=== PATIENT | male | born 1970 | race Caucasian/White ===

== ENCOUNTER 2016-08-09 20:24 | Emergency (ER) | payer SELFPAY ==
--- NOTE | 2016-08-09 21:05 | ED CLINICAL REPORT ---
Clinical Report - Physicians/Mid Levels [facility] [address] [place] [address] 08/09/2016 20:26 [id number] Time Seen: 20:55 Aug 09 2016. Arrived- By private vehicle. Historian- patient. HISTORY OF PRESENT ILLNESS Chief Complaint: Injury to the right wrist. The injury happened just prior to arrival. The patient sustained a direct blow. Occurred at home. Patient is experiencing moderate pain. Patient denies injury to the head. ( prior to arrival, patient tripped over a rug at home that was folded, and fell onto an outstretched right wrist. Incident occurred 45 minutes prior to arrival, with immediate swelling, pain to the right side. Denies any paresthesias. Previous injury, fracture of the wrist as a child.). REVIEW OF SYSTEMS No tingling, numbness or skin laceration. All systems otherwise negative, except as recorded above. PAST HISTORY The patient has had a prior injury to the same area. SOCIAL HISTORY Alcohol use. History of drug use: marijuana. PHYSICAL EXAM Vital Signs: 08/09/2016 20:45 BP: 126/72. HR: 83. RR: 18. O2 saturation: 98%. Temp: 97.8 F. Head: Head atraumatic. Neck: Normal inspection. Neck supple. CVS: Normal heart rate and rhythm. Heart sounds normal. Respiratory: No respiratory distress. Breath sounds normal. Back: No tenderness. Normal inspection. Skin: Skin warm. Skin intact. Extremities: Right distal radius: moderate tenderness and swelling. Limited thumb movement (diminished flexion and extension). Limited ROM at the wrist secondary to pain (diminished flexion and radial deviation). Neurovascular intact distally. No ecchymosis, foreign body or deformity. No signs of infection present. No hand injury. Neuro, Vascular and Tendons: Vascular status intact. No pulse deficit present. Motor intact. Tendon function intact. No sensory deficit or weakness. Neuro: Oriented X 3. LABS, X-RAYS, AND EKG Rt Wrist X-ray: (IMPRESSION: 1. Mildly impacted intra-articular fracture the right distal radius. Electronically Final signed by:Reece Koehler MD 08/09/2016 9:14:10 PM). PROGRESS AND PROCEDURES Splint Application: Time: 21:41 Aug 09 2016. Fiberglass sugar tong splint applied to right hand and wrist. Splint applied with direct supervision by me. Reassessed extremity following splint application. Neurovascular intact. Course of Care: patient with distal radius fracture, with no neurovascular complications or secondary signs of infection. Patient splinted. Follow-up with orthopedics. Stable otherwise. No other injuries. Mechanical trip and fall. No injuries to the head or neck. Patient is stable. Symptoms better. Patient/family counseled. Disposition: Discharged. Condition: good. CLINICAL IMPRESSION Comminuted and intraarticular fracture of the distal right radius Fall on same level by tripping. INSTRUCTIONS Apply ice. Elevate affected areas above chest level. Wear sling and splint. Limit use of your hand. ([facility]: [phone]). Prescription Medications: Hydrocodone/APAP 7.5mg / 325mg: take 1 orally every 6 hours as needed for pain. Dispense twenty-five (25). No refill. Ibuprofen 800 mg tablets: take 1 tablet orally every 8 hours for 3 days, as needed for pain. Dispense ten (10). No refill. (Electronically signed by Ce Cantu P.A.-C 08/09/2016 21:41)
--- NOTE | 2016-08-09 21:05 | ED NURSING NOTES ---
Clinical Report - Nurses [facility] [address] [place] [address] 08/09/2016 20:26 [id number] TRI[facility] Triage time 20:45. Acuity: LEVEL 4. Chief Complaint: INJURY TO RIGHT WRIST. --20:48 TonyaB, R.N. 20:45 08/09/16. BP: 126/72. HR: 83. RR: 18. O2 saturation: 98%. Temp: 97.8 F. Pain level now 11/28. --20:48 TonyaB, R.N. Weight: 108.8 kg. Height/Length: 69 inches. BMI: 35.4. --20:46 TonyaB, R.N. Medications None. --20:45 TonyaB, R.N. Allergies Iodine. --20:45 TonyaB, R.N. History Arrived by private vehicle. Historian: patient. Accompanied by family. This occurred just prior to arrival. Mechanism of injury: fell. ( pt slipped on area rug). 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 PAST MEDICAL HX: Tetanus status: up-to-date. Immunizations: up-to-date. SOCIAL HX: Smoker- current status unknown. Alcohol use. History of drug use: marijuana. No infectious disease exposure. FALL RISK ASSESSMENT: Fall risk assessment completed. No fall risk identified. NUTRITIONAL RISK ASSESSMENT: The nutritional risk assessment revealed no deficiencies. FUNCTIONAL ASSESSMENT: Functional assessment: no impairments noted. LEARNING NEEDS ASSESSMENT: The learning needs assessment revealed no barriers. SKIN INTEGRITY ASSESSMENT: Skin integrity risk assessment completed. No skin integrity risk identified. --20:48 TonyaB, R.N. PROBLEMS: no known problems. ADDITIONAL SURGERIES: no known surgeries. Interventions ID band on patient. To treatment room. --20:48 TonyaB, R.N. PHYSICAL ASSESSMENT Ambulatory to room. GENERAL / NEURO / PSYCH: Oriented X 4. Alert. EXTREMITIES: Capillary refill is less than 2 seconds in the extremities. Extremity pulses are within normal limits. Neuro-vascular status intact to the extremity. Right wrist: tenderness and swelling. SKIN: Skin intact. Skin is warm and dry. --20:48 Deana Genao NURSING PROGRESS NOTES 21:12 08/09/2016 Percocet (Oxycodone-Acetaminophen) PO 5/325 mg Tablets 1 tab given. Allergies verified, confirmed 5 rights and sedative warning given to the patient. --21:13 Tania Johnson R.N. 21:13 08/09/2016 Motrin PO Tablets 800 mg given. Allergies verified and confirmed 5 rights. --21:14 Tania Johnson R.N. DISPOSITION / DISCHARGE Departure time: 21:42. Condition at departure: improved. No learning barriers present. Discharge instructions provided and reviewed with the patient. Reviewed warnings. Reviewed medication(s) side effects, precautions, dosing and course information. Prescription(s) given to the patient. Treatments reviewed. Reviewed referrals. Activity restrictions reviewed. Work note given. Follow up contact number. Patient verbalized understanding. Written instructions provided in Serbian. No diet instructions or stop smoking instructions. The patient was discharged by the physician talent assistant. He was discharged home and accompanied by dental cream maker. He left the Emergency Department ambulatory and via private vehicle. Spectrograph Operator driving. FALL RISK ASSESSMENT: Fall risk assessment completed. No fall risk identified. --21:42 Deana Genao 21:41 08/09/16. BP: 128/70. HR: 74. RR: 18. O2 saturation: 99%. Temp: deferred. Pain level now: 08/29. --21:42 Deana Genao Locked/Released at 08/09/2016 21:42 by Deana Genao
--- NOTE | 2016-08-09 21:05 | ED NURSING NOTES ---
Clinical Report - Nurses [facility] [address] [place] [address] 08/09/2016 20:26 [id number] TRI[facility] Triage time 20:45. Acuity: LEVEL 4. Chief Complaint: INJURY TO RIGHT WRIST. --20:48 TonyaB, R.N. 20:45 08/09/16. BP: 126/72. HR: 83. RR: 18. O2 saturation: 98%. Temp: 97.8 F. Pain level now 11/28. --20:48 TonyaB, R.N. Weight: 108.8 kg. Height/Length: 69 inches. BMI: 35.4. --20:46 TonyaB, R.N. Medications None. --20:45 TonyaB, R.N. Allergies Iodine. --20:45 TonyaB, R.N. History Arrived by private vehicle. Historian: patient. Accompanied by family. This occurred just prior to arrival. Mechanism of injury: fell. ( pt slipped on area rug). 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 PAST MEDICAL HX: Tetanus status: up-to-date. Immunizations: up-to-date. SOCIAL HX: Smoker- current status unknown. Alcohol use. History of drug use: marijuana. No infectious disease exposure. FALL RISK ASSESSMENT: Fall risk assessment completed. No fall risk identified. NUTRITIONAL RISK ASSESSMENT: The nutritional risk assessment revealed no deficiencies. FUNCTIONAL ASSESSMENT: Functional assessment: no impairments noted. LEARNING NEEDS ASSESSMENT: The learning needs assessment revealed no barriers. SKIN INTEGRITY ASSESSMENT: Skin integrity risk assessment completed. No skin integrity risk identified. --20:48 TonyaB, R.N. PROBLEMS: no known problems. ADDITIONAL SURGERIES: no known surgeries. Interventions ID band on patient. To treatment room. --20:48 TonyaB, R.N. PHYSICAL ASSESSMENT Ambulatory to room. GENERAL / NEURO / PSYCH: Oriented X 4. Alert. EXTREMITIES: Capillary refill is less than 2 seconds in the extremities. Extremity pulses are within normal limits. Neuro-vascular status intact to the extremity. Right wrist: tenderness and swelling. SKIN: Skin intact. Skin is warm and dry. --20:48 Deana Genao NURSING PROGRESS NOTES 21:12 08/09/2016 Percocet (Oxycodone-Acetaminophen) PO 5/325 mg Tablets 1 tab given. Allergies verified, confirmed 5 rights and sedative warning given to the patient. --21:13 Tania Johnson R.N. 21:13 08/09/2016 Motrin PO Tablets 800 mg given. Allergies verified and confirmed 5 rights. --21:14 Tania Johnson R.N. DISPOSITION / DISCHARGE Departure time: 21:42. Condition at departure: improved. No learning barriers present. Discharge instructions provided and reviewed with the patient. Reviewed warnings. Reviewed medication(s) side effects, precautions, dosing and course information. Prescription(s) given to the patient. Treatments reviewed. Reviewed referrals. Activity restrictions reviewed. Work note given. Follow up contact number. Patient verbalized understanding. Written instructions provided in [place]. No diet instructions or stop smoking instructions. The patient was discharged by the physician delivery assistant. He was discharged home and accompanied by coining press operator. He left the Emergency Department ambulatory and via private vehicle. Physical Medicine Physician driving. FALL RISK ASSESSMENT: Fall risk assessment completed. No fall risk identified. --21:42 Deana Genao 21:41 08/09/16. BP: 128/70. HR: 74. RR: 18. O2 saturation: 99%. Temp: deferred. Pain level now: 08/29. --21:42 Deana Genao Locked/Released at 08/09/2016 21:42 by Deana Genao
--- NOTE | 2016-08-09 21:05 | ED ORDER SUMMARY ---
..... Patient: ABENA GARCIA OrderSheet [facility] VisitID: [id number] [place] [address] 46y, M Registration Date/Time: 08/09/2016 ORDER SHEET Weight: 108.8 kg Allergies: Iodine GENERAL ORDERS: Wrist 3 or 4V Right Urgent (20:53 08/09/2016 EKoroleva P.A.-C) (Ack 20:54 Lo ER Door Manager) (21:37 TBowen R.N.) Splint (UE) (Right) (Sugar Tong) (21:01 08/09/2016 EKoroleva P.A.-C) (Ack 21:16 RCollier R.N.) (21:37 TBowen R.N.) Sling - arm (21:02 08/09/2016 EKoroleva P.A.-C) (Ack 21:16 RCollier R.N.) (21:37 TBowen R.N.) MEDICATION ORDERS: Percocet PO 5/325 mg (HIGH ALERT MEDICATION, NOW) (21:01 08/09/2016 EKoroleva P.A.-C) (Ack 21:08 RCollier R.N.) (21:13 RCollier R.N.) Motrin PO 800 mg (NOW) (21:01 08/09/2016 EKoroleva P.A.-C) (Ack 21:08 RCollier R.N.) (21:14 RCollier R.N.) IV FLUIDS: ORDER SHEET NOTES: [Electronically signed by Ce Cantu P.A.-C (21:41 08/09/2016)] [Electronically signed by Jennie Zamarripa R.N. (21:42 08/09/2016)] [Electronically locked/signed by Jennie Zamarripa R.N. (21:42 08/09/2016)]
--- NOTE | 2016-08-09 21:05 | ED CLINICAL REPORT ---
Clinical Report - Physicians/Mid Levels [facility] [address] [place] [address] 08/09/2016 20:26 [id number] Time Seen: 20:55 Aug 09 2016. Arrived- By private vehicle. Historian- patient. HISTORY OF PRESENT ILLNESS Chief Complaint: Injury to the right wrist. The injury happened just prior to arrival. The patient sustained a direct blow. Occurred at home. Patient is experiencing moderate pain. Patient denies injury to the head. ( prior to arrival, patient tripped over a rug at home that was folded, and fell onto an outstretched right wrist. Incident occurred 45 minutes prior to arrival, with immediate swelling, pain to the right side. Denies any paresthesias. Previous injury, fracture of the wrist as a child.). REVIEW OF SYSTEMS No tingling, numbness or skin laceration. All systems otherwise negative, except as recorded above. PAST HISTORY The patient has had a prior injury to the same area. SOCIAL HISTORY Alcohol use. History of drug use: marijuana. PHYSICAL EXAM Vital Signs: 08/09/2016 20:45 BP: 126/72. HR: 83. RR: 18. O2 saturation: 98%. Temp: 97.8 F. Head: Head atraumatic. Neck: Normal inspection. Neck supple. CVS: Normal heart rate and rhythm. Heart sounds normal. Respiratory: No respiratory distress. Breath sounds normal. Back: No tenderness. Normal inspection. Skin: Skin warm. Skin intact. Extremities: Right distal radius: moderate tenderness and swelling. Limited thumb movement (diminished flexion and extension). Limited ROM at the wrist secondary to pain (diminished flexion and radial deviation). Neurovascular intact distally. No ecchymosis, foreign body or deformity. No signs of infection present. No hand injury. Neuro, Vascular and Tendons: Vascular status intact. No pulse deficit present. Motor intact. Tendon function intact. No sensory deficit or weakness. Neuro: Oriented X 3. LABS, X-RAYS, AND EKG Rt Wrist X-ray: (IMPRESSION: 1. Mildly impacted intra-articular fracture the right distal radius. Electronically Final signed by:Reece Koehler MD 08/09/2016 9:14:10 PM). PROGRESS AND PROCEDURES Splint Application: Time: 21:41 Aug 09 2016. Fiberglass sugar tong splint applied to right hand and wrist. Splint applied with direct supervision by me. Reassessed extremity following splint application. Neurovascular intact. Course of Care: patient with distal radius fracture, with no neurovascular complications or secondary signs of infection. Patient splinted. Follow-up with orthopedics. Stable otherwise. No other injuries. Mechanical trip and fall. No injuries to the head or neck. Patient is stable. Symptoms better. Patient/family counseled. Disposition: Discharged. Condition: good. CLINICAL IMPRESSION Comminuted and intraarticular fracture of the distal right radius Fall on same level by tripping. INSTRUCTIONS Apply ice. Elevate affected areas above chest level. Wear sling and splint. Limit use of your hand. ([facility]: [phone]). Prescription Medications: Hydrocodone/APAP 7.5mg / 325mg: take 1 orally every 6 hours as needed for pain. Dispense twenty-five (25). No refill. Ibuprofen 800 mg tablets: take 1 tablet orally every 8 hours for 3 days, as needed for pain. Dispense ten (10). No refill. (Electronically signed by Ce Cantu P.A.-C 08/09/2016 21:41)
--- NOTE | 2016-08-09 21:05 | ED ORDER SUMMARY ---
..... Patient: ABENA GARCIA OrderSheet [facility] VisitID: [id number] [place] [address] 46y, M Registration Date/Time: 08/09/2016 ORDER SHEET Weight: 108.8 kg Allergies: Iodine GENERAL ORDERS: Wrist 3 or 4V Right Urgent (20:53 08/09/2016 EKoroleva P.A.-C) (Ack 20:54 Lo ER Cabin Crew) (21:37 TBowen R.N.) Splint (UE) (Right) (Sugar Tong) (21:01 08/09/2016 EKoroleva P.A.-C) (Ack 21:16 RCollier R.N.) (21:37 TBowen R.N.) Sling - arm (21:02 08/09/2016 EKoroleva P.A.-C) (Ack 21:16 RCollier R.N.) (21:37 TBowen R.N.) MEDICATION ORDERS: Percocet PO 5/325 mg (HIGH ALERT MEDICATION, NOW) (21:01 08/09/2016 EKoroleva P.A.-C) (Ack 21:08 RCollier R.N.) (21:13 RCollier R.N.) Motrin PO 800 mg (NOW) (21:01 08/09/2016 EKoroleva P.A.-C) (Ack 21:08 RCollier R.N.) (21:14 RCollier R.N.) IV FLUIDS: ORDER SHEET NOTES: [Electronically signed by Ce Cantu P.A.-C (21:41 08/09/2016)] [Electronically signed by Jennie Zamarripa R.N. (21:42 08/09/2016)] [Electronically locked/signed by Jennie Zamarripa R.N. (21:42 08/09/2016)]
--- NOTE | 2016-08-09 21:16 | DIAGNOSTIC IMAGING REPORT ---
PROCEDURE: XR WRIST MIN 3 VIEWS - RIGHT INDICATION: TRAUMA/INJURY TECHNIQUE: Four views. COMPARISON: None. FINDINGS: There is a mildly impacted oblique intra-articular fracture of the right distal radius. There are mild to moderate degenerative changes of the scaphoid/multangular joint. The rest of the osseous structures and joint spaces are normal If an occult scaphoid fracture is suspected clinically, follow-up examination in 10-14 days may be of assistance. IMPRESSION: 1. Mildly impacted intra-articular fracture the right distal radius.
--- NOTE | 2016-08-09 21:42 | ED MED RECONCILIATION SUMMARY ---
Patient: ABENA GARCIA Medication Reconciliation Report [facility] VisitID: [id number] [address] [place] [address] 46y, M Registration Date/Time: 08/09/2016 Weight: 108.8 kg Height/Length: 69 in. BMI: 35.4 ALLERGIES: Iodine The patient's Home Medications are listed below: NONE. The source(s) of the original Home Medication information: Not obtained. The following Medications were given to the patient in the Emergency Department: Percocet [PO] PO 1 tab, administered: 08/09/2016 9:12:00 PM Motrin [PO] PO 800 mg, administered: 08/09/2016 9:13:00 PM The following Medications were prescribed to the patient: Hydrocodone/APAP 7.5mg / 325mg: take 1 orally every 6 hours as needed for pain. Dispense twenty-five (25). No refill. -- Ce Cantu, P.A.-Martin Ibuprofen 800 mg tablets: take 1 tablet orally every 8 hours for 3 days, as needed for pain. Dispense ten (10). No refill. -- Ce Cantu, P.A.-C
--- NOTE | 2016-08-09 21:42 | ED MED RECONCILIATION SUMMARY ---
Patient: ABENA GARCIA Medication Reconciliation Report [facility] VisitID: [id number] [address] [place] [address] 46y, M Registration Date/Time: 08/09/2016 Weight: 108.8 kg Height/Length: 69 in. BMI: 35.4 ALLERGIES: Iodine The patient's Home Medications are listed below: NONE. The source(s) of the original Home Medication information: Not obtained. The following Medications were given to the patient in the Emergency Department: Percocet [PO] PO 1 tab, administered: 08/09/2016 9:12:00 PM Motrin [PO] PO 800 mg, administered: 08/09/2016 9:13:00 PM The following Medications were prescribed to the patient: Hydrocodone/APAP 7.5mg / 325mg: take 1 orally every 6 hours as needed for pain. Dispense twenty-five (25). No refill. -- Ce Cantu, P.A.-Martin Ibuprofen 800 mg tablets: take 1 tablet orally every 8 hours for 3 days, as needed for pain. Dispense ten (10). No refill. -- Ce Cantu, P.A.-C
--- NOTE | 2016-08-09 21:42 | ED MAR SUMMARY ---
..... Medication Administration Record [facility] [address] [place] [address] Patient: ABENA GARCIA Visit ID: [id number] 46y, M Weight: 108.8 kg Height/Length: 69 in BMI: 35.4 ALLERGIES: Iodine Given 21:12 08/09/2016 Tania Johnson RDorothy Medication Administered: PERCOCET [PO] (OXYCODONE-ACETAMINOPHEN), Dose: 1 tab 5/325 mg Tablets PO. Medication Ordered: Percocet PO 5/325 mg (HIGH ALERT MEDICATION, NOW). Given 21:13 08/09/2016 Tania Johnson RDonNDon Medication Administered: MOTRIN [PO], Dose: 800 mg Tablets PO. Medication Ordered: Motrin PO 800 mg (NOW).
--- NOTE | 2016-08-09 21:42 | ED DISCHARGE INSTRUCTIONS ---
Patient: ABENA GARCIA [facility] VisitID: [id number] [place] [address] 46y, M Registration Date/Time: 08/09/2016 Comminuted and intraarticular fracture of the distal right radius Fall on same level by tripping. INSTRUCTIONS Apply ice. Elevate affected areas above chest level. Wear sling and splint. Limit use of your hand. ([facility]: [phone]). Prescription Medications: Hydrocodone/APAP 7.5mg / 325mg: take 1 orally every 6 hours as needed for pain. Dispense twenty-five (25). No refill. Ibuprofen 800 mg tablets: take 1 tablet orally every 8 hours for 3 days, as needed for pain. Dispense ten (10). No refill. ADDITIONAL INFORMATION Mechanical Fall You have had a fall today. It appears that the cause is mechanical. That means that you slipped, tripped or lost your balance. If your fall had been due to fainting or a seizure, further tests would be required. Home Care: Rest today and resume your normal activities when you are feeling back to normal. If you were injured during the fall, follow the advice from your doctor regarding care of your injury. You may use acetaminophen (Tylenol) or ibuprofen (Motrin, Advil) to control pain, unless another pain medicine was prescribed. [NOTE: If you have chronic liver or kidney disease or ever had a stomach ulcer or GI bleeding, talk with your doctor before using these medicines.] Fall Prevention: Was there anything that caused your fall that can be fixed, removed, or replaced? Make your home safe by keeping walkways clear of objects you may trip over. Use non-slip pads under rugs. Do not walk in poorly lit areas. Do not stand on chairs or wobbly ladders. Use caution when reaching overhead or looking upward. This position can cause a loss of balance. Be sure your shoes fit properly, have non-slip bottoms and are in good condition. Be cautious when going up and down curbs, and walking on uneven sidewalks. If your balance is poor, consider using a cane or walker. Stay as active as you can. Balance, flexibility, strength, and endurance all come from exercise. They all play a role in preventing falls. Follow Up with your doctor or as advised by our staff. Get Prompt Medical Attention if any of the following occur: Repeated mechanical falls, or unexplained falls Dizziness, fainting or seizure Severe headache Chest pain or shortness of breath Palpitations (very rapid or very slow or irregular heartbeat) Blood in vomit, stools (black or red color) Weakness of an arm or leg or one side of the face Difficulty with speech or vision Fracture: Wrist (General) You have a fracture (break) of a bone in your wrist. This may be a small crack or chip in the bone; or a major break with the broken parts pushed out of position. Wrist fractures are treated with a splint or cast. They take about 4-6 weeks to heal. Severe injuries may require surgery. Home Care: Keep your arm elevated to reduce pain and swelling. When sitting or lying down elevate your arm above the level of your heart. You can do this by placing your arm on a pillow that rests on your chest or on a pillow at your side. This is most important during the first 48 hours after injury. Apply an ice pack (ice cubes in a plastic bag, wrapped in a towel) over the injured area for 20 minutes every 1-2 hours the first day. You can place the ice pack inside the sling and directly over the splint/cast. Continue with ice packs 3-4 times a day for the next two days, then as needed for the relief of pain and swelling. Keep the cast/splint completely dry at all times. Bathe with your cast/splint out of the water, protected with a large plastic bag, rubber-banded at the top end. If a fiberglass splint/cast gets wet, you can dry it with a hair-dryer. You may use acetaminophen (Tylenol) or ibuprofen (Motrin, Advil) to control pain, unless another pain medicine was prescribed. [NOTE: If you have chronic liver or kidney disease or ever had a stomach ulcer or GI bleeding, talk with your doctor before using these medicines.] Follow Up with your doctor in one week, or as advised by our staff, to be sure the bone is healing properly. If a splint was applied, it will be changed to a cast during your follow-up visit. [NOTE: Any X-rays taken will be reviewed by a radiologist. You will be notified if there are any new findings that may affect your care.] Get Prompt Medical Attention if any of the following occur: The plaster cast or splint becomes wet or soft The fiberglass cast or splint remains wet for more than 24 hours Increased tightness or pain under the cast or splint Fingers become swollen, cold, blue, numb or tingly Splint Care, Fiberglass The following will help you care for your splint: It will take up totwo hours for your fiber glass splint to fully harden; therefore, do notapply any pressure on it during that time or else it may break. To prevent swelling under the splint, for thefirst 48 hours: If the splint is on yourarm, keep it in a sling or raised to shoulder level when sitting or standing; rest it on your chest or on a pillow at your side when lying down. If the splint is on yourfoot, keep it propped up above the level of your waist when sitting or lying. Avoid crutch walking as much as possible during this time. Keep the splint/cast dry at all times. Bathe with your splint/cast well out of the water, protected with a large plastic bag, rubber-banded at the top end. If a fiberglass cast or splint gets wet, you can dry it with a hair-dryer. Follow-up care Follow up with your doctor or this facility as advised. When to seek medical care Get prompt medical attention if any of the following occur: Bad odor from the splint or wound-fluid stains the splint The splint cracks or remains wet over 24 hours Increasing tightness or pressure under the splint Fingers or toes become swollen, cold, blue, numb or tingly Increased pain under the splint Hydrocodone Bitartrate, Acetaminophen Oral tablet What is this medicine? ACETAMINOPHEN; HYDROCODONE (a set a PHYLICIA myles fen; joe droe KOE done) is a pain reliever. It is used to treat mild to moderate pain. How should I use this medicine? Take this medicine by mouth. Swallow it with a full glass of water. Follow the directions on the prescription label. If the medicine upsets your stomach, take the medicine with food or milk. Do not take more than you are told to take. Talk to your oxidation engineer regarding the use of this medicine in children. This medicine is not approved for use in children. What side effects may I notice from receiving this medicine? Side effects that you should report to your doctor or health ambulatory care nurse as soon as possible: allergic reactions like skin rash, itching or hives, swelling of the face, lips, or tongue breathing problems confusion feeling faint or lightheaded, falls stomach pain yellowing of the eyes or skin Side effects that usually do not require medical attention (report to your doctor or health ambulatory care nurse if they continue or are bothersome): nausea, vomiting stomach upset What may interact with this medicine? alcohol antihistamines isoniazid medicines for depression, anxiety, or psychotic disturbances medicines for sleep muscle relaxants naltrexone narcotic medicines (opiates) for pain phenobarbital ritonavir tramadol What if I miss a dose? If you miss a dose, take it as soon as you can. If it is almost time for your next dose, take only that dose. Do not take double or extra doses. Where should I keep my medicine? Keep out of the reach of children. This medicine can be abused. Keep your medicine in a safe place to protect it from theft. Do not share this medicine with anyone. Selling or giving away this medicine is dangerous and against the law. Store at room temperature between 15 and 30 degrees C (59 and 86 degrees F). Protect from light. Keep container tightly closed. Throw away any unused medicine after the expiration date. Discard unused medicine and used packaging carefully. Pets and children can be harmed if they find used or lost packages. What should I tell my health care provider before I take this medicine? They need to know if you have any of these conditions: brain tumor Crohn's disease, inflammatory bowel disease, or ulcerative colitis drink more than 3 alcohol-containing drinks per day drug abuse or addiction head injury heart or circulation problems kidney disease or problems going to the bathroom liver disease lung disease, asthma, or breathing problems an unusual or allergic reaction to acetaminophen, hydrocodone, other opioid analgesics, other medicines, foods, dyes, or preservatives or trying to get breast-feeding What should I watch for while using this medicine? Tell your doctor or health ambulatory care nurse if your pain does not go away, if it gets worse, or if you have new or a different type of pain. You may develop tolerance to the medicine. Tolerance means that you will need a higher dose of the medicine for pain relief. Tolerance is normal and is expected if you take the medicine for a long time. Do not suddenly stop taking your medicine because you may develop a severe reaction. Your body becomes used to the medicine. This does NOT mean you are addicted. Addiction is a behavior related to getting and using a drug for a non-medical reason. If you have pain, you have a medical reason to take pain medicine. Your doctor will tell you how much medicine to take. If your doctor wants you to stop the medicine, the dose will be slowly lowered over time to avoid any side effects. You may get drowsy or dizzy when you first start taking the medicine or change doses. Do not drive, use machinery, or do anything that may be dangerous until you know how the medicine affects you. Stand or sit up slowly. There are different types of narcotic medicines (opiates) for pain. If you take more than one type at the same time, you may have more side effects. Give your health care provider a list of all medicines you use. Your doctor will tell you how much medicine to take. Do not take more medicine than directed. Call emergency for help if you have problems breathing. The medicine will cause constipation. Try to have a bowel movement at least every 2 to 3 days. If you do not have a bowel movement for 3 days, call your doctor or health ambulatory care nurse. Too much acetaminophen can be very dangerous. Do not take Tylenol (acetaminophen) or medicines that contain acetaminophen with this medicine. Many non-prescription medicines contain acetaminophen. Always read the labels carefully. You have been given the following additional information: Fall, Mechanical Fracture, Wrist [General] Splint Care, Fiberglass Hydrocodone Bitartrate, Acetaminophen Oral tablet Limit use of your hand. (Electronically signed by Ce Cantu P.A.-C 08/09/2016 21:41)
--- NOTE | 2016-08-09 21:42 | ED MAR SUMMARY ---
..... Medication Administration Record [facility] [address] [place] [address] Patient: ABENA GARCIA Visit ID: [id number] 46y, M Weight: 108.8 kg Height/Length: 69 in BMI: 35.4 ALLERGIES: Iodine Given 21:12 08/09/2016 Tania Johnson RDorothy Medication Administered: PERCOCET [PO] (OXYCODONE-ACETAMINOPHEN), Dose: 1 tab 5/325 mg Tablets PO. Medication Ordered: Percocet PO 5/325 mg (HIGH ALERT MEDICATION, NOW). Given 21:13 08/09/2016 Tania Johnson RDonNDon Medication Administered: MOTRIN [PO], Dose: 800 mg Tablets PO. Medication Ordered: Motrin PO 800 mg (NOW).
== END 2016-08-09 21:40 | disposition home or self-care (01) ==
LOC: ED SRH 20:24
DX: S52.501A Unspecified fracture of the lower end of right radius, initial encounter for closed fracture (principal); W01.0XXA Fall on same level from slipping, tripping and stumbling without subsequent striking against object, initial encounter; Y93.9 Activity, unspecified; Y92.009 Unspecified place in unspecified non-institutional (private) residence as the place of occurrence of the external cause; Y99.9 Unspecified external cause status

== ENCOUNTER 2016-08-22 12:54 | Emergency (ER) | payer OTHER ==
--- NOTE | 2016-08-22 13:59 | ED CLINICAL REPORT ---
Clinical Report - Physicians/Mid Levels [facility] [address] [place] [address] 08/22/2016 12:56 [id number] Time Seen: 14:25 Aug 22 2016. Arrived- By private vehicle. Historian- patient. HISTORY OF PRESENT ILLNESS Chief Complaint: Injury to right wrist. 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 ( 08/09, patient was seen in the emergency department, sustained a wrist fracture, and has been having difficulty establishing orthopedics follow-up since. Patient reports he removed the splint once, as he had paresthesias to the area of his forearm, wishing to stab it with a pencil, and dry skin, which resolved, patient has placed a splint. Denies any new sudden pain. Denies any new trauma. Denies). REVIEW OF SYSTEMS All systems otherwise negative, except as recorded above. PAST HISTORY The patient's dominant hand is the right. He has had a prior injury to the same area. Problems: Fall. Additional Surgeries: Tonsillectomy. Medications: None. Allergies: Iodine. IV Contrast. SOCIAL HISTORY Current every day smoker. Occasional alcohol use. History of drug use. ADDITIONAL NOTES The nursing notes have been reviewed. PHYSICAL EXAM Appearance: Alert. No acute distress. Head: Head atraumatic. Neck: Normal inspection. CVS: Normal heart rate and rhythm. Respiratory: No respiratory distress. Breath sounds normal. Skin: Skin warm. Normal skin color. Extremities: No signs of infection present in the upper extremities. Right forearm. No tenderness or laceration. Right wrist: mild tenderness and swelling located in the radial aspect of the wrist. Limited ROM secondary to pain (diminished flexion and extension). No erythema, abrasion, ecchymosis or puncture wound. Right hand. 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 No tenderness or swelling. Neuro, Vascular and Tendons: No pulse deficit present. No tendon injury seen. PROGRESS AND PROCEDURES Splint Application: Time: 1400. Fiberglass sugar tong splint applied to right hand and wrist. Splint applied by tech. Reassessed extremity following splint application. Neurovascular intact. Course of Care: patient has a good distal radial pulse, his skin is warm and intact, the splint was removed, and visualization of the underlying skin does not show any skin breakdown. Patient has no pain out of proportion to the injury, have attempted to arrange for ORTHO, patient needs a primary care provider referral first, and thus they will follow-up with [facility] now. 08/22/2016 13:47 BP: 138/93. HR: 65. RR: 16. O2 saturation: 98%. Temp: 98.4 F. Pain level now: 08/29. Patient is stable. Symptoms better. Patient/family counseled. Disposition: Discharged. Condition: good. CLINICAL IMPRESSION Fracture of the distal right radius (Sub-acute (second visit)). INSTRUCTIONS Apply ice. Elevate affected areas above chest level. Limit use of your hand. (call ORTHO as discussed). Prescription Medications: Hydrocodone/APAP 5mg / 325mg: take 1 orally every 6 hours as needed for pain. Dispense twelve (12). No refill. (Electronically signed by Ce Cantu P.A.-C 08/22/2016 14:29)
--- NOTE | 2016-08-22 13:59 | ED NURSING NOTES ---
Clinical Report - Nurses [facility] [place] [address] [address] 08/22/2016 12:56 Patient: ABENA GARCIA TRIAGE Triage time 13:47 Aug 22 2016. Acuity: LEVEL 4. Chief Complaint: RIGHT UPPER EXTREMITY PAIN and TINGLING. Location of symptoms- right wrist. SEPSIS SCREEN: Sepsis Screen. Negative (no infection suspected/documented). --13:53 Dangelo Francois R.N. 13:47 08/22/16. BP: 138/93. HR: 65. RR: 16. O2 saturation: 98% on room air. Temp: 98.4 F. Pain level now: 08/29. --13:53 Dangelo Francois R.N. Weight: 108.8 kg stated. Height/Length: 69 inches Per Patient. BMI: 35.4. --13:47 Dangelo Francois R.N. Medications None. --14:17 Dangelo Francois R.N. Medication/allergy information source: the patient and patient's spouse. --13:53 Dangelo Francois R.N. Allergies Iodine. --13:48 Dangelo Francois R.N. IV Contrast. --13:49 Dangelo Francois R.N. History Arrived by private vehicle. Historian: patient. Accompanied by family. ( R wrist fx recheck. Ortho would not see Pt d/t insurance.). This occurred (2 weeks ago). PAST MEDICAL HX: No history of diabetes mellitus or hypertension. SURGERY HX: Tonsillectomy. SOCIAL HX: Current every day heavy tobacco smoker- less than 1 pack per day. Occasional alcohol use. History of drug use: marijuana. No infectious disease exposure. ABUSE ASSESSMENT: No report of abuse. FALL RISK ASSESSMENT: Fall risk assessment completed. No fall risk identified. NUTRITIONAL RISK ASSESSMENT: The nutritional risk assessment revealed no deficiencies. FUNCTIONAL ASSESSMENT: Functional assessment: no impairments noted. LEARNING NEEDS ASSESSMENT: The learning needs assessment revealed no barriers. SKIN INTEGRITY ASSESSMENT: Skin integrity risk assessment completed. No skin integrity risk identified. --13:53 Dangelo Francois R.N. Interventions ID band on patient. To treatment room. --13:53 Dangelo Francois R.N. PHYSICAL ASSESSMENT Ambulatory to room. GENERAL / NEURO / PSYCH: Oriented X 4. Alert. Appears in no acute distress. EXTREMITIES: No upper extremity edema. Skin is non-tender on the extremities. Right wrist: located in the radial aspect of the wrist. ( small amount of swelling noted). SKIN: Skin intact. Skin is warm and dry. --13:55 Dangelo Francois R.N. NURSING PROGRESS NOTES The plan of care for this patient has been created. Extremity elevated. Call light placed in reach. Bed placed in lowest position. Patient ready for evaluation- chart flagged and PA notified. --13:55 Dangelo Francois R.N. 14:04 08/22/2016 Hydrocodone-APAP (Hydrocodone-Acetaminophen) PO 5/325 mg Tablets 1 tab given. Allergies verified, confirmed 5 rights and sedative warning given to the patient. --14:04 Dangelo Francois R.N. Sugar tong fiberglass upper extremity splint applied to right forearm and wrist by tech. Distal pulses intact, sensation intact and motor within normal limits. Reassessment after splinting. Overall patient status is improved- he states feels better. --14:13 Dangelo Francois R.N. 14:11 08/22/2016 Hydrocodone-APAP PO Response: no adverse reaction. --14:16 Dangelo Francois R.N. DISPOSITION / DISCHARGE Condition at departure: improved and stable. The goals identified in the patient's plan of care were met. No learning barriers present. Discharge instructions provided and reviewed with the patient. Reviewed medication(s) side effects, precautions, dosing and course information. Reviewed referral to an orthopedic surgeon and a primary care physician. Summary of care provided to patient via paper (Pt instructed to go to the [facility] to get a PCP and then a referral to Ortho.). Activity restrictions (minimal use of injured extremity) reviewed. Patient and spouse verbalized understanding. Written instructions provided in Tajik. The patient was discharged by the physician public health assistant. He was discharged home and accompanied by spouse. He left the Emergency Department ambulatory and via private vehicle. Spouse driving. --14:14 Dangelo Francois R.N. Departure time: 14:14 Aug 22 2016. --14:14 Dangelo Francois R.N. ( Pt left in stable condition, new splint applied, PA assessed splint prior to DC. Pt given dose of pain medication as ordered, Pt given instructions to walk over to [facility] to get set up with a PCP so he can then obtain a referral to see an Orthopedic Surgeon. Dr. Farr would not see Pt until he is referred by his PCP.). --14:16 Dangelo Francois R.N. Locked/Released at 08/22/2016 14:44 by Dangelo Francois R.N.
--- NOTE | 2016-08-22 13:59 | ED NURSING NOTES ---
Clinical Report - Nurses [facility] [place] [address] 08/22/2016 12:56 Patient: ABENA GARCIA TRIAGE Triage time 13:47 Aug 22 2016. Acuity: LEVEL 4. Chief Complaint: RIGHT UPPER EXTREMITY PAIN and TINGLING. Location of symptoms- right wrist. SEPSIS SCREEN: Sepsis Screen. Negative (no infection suspected/documented). --13:53 Dangelo Francois R.N. 13:47 08/22/16. BP: 138/93. HR: 65. RR: 16. O2 saturation: 98% on room air. Temp: 98.4 F. Pain level now: 08/29. --13:53 Dangelo Francois R.N. Weight: 108.8 kg stated. Height/Length: 69 inches Per Patient. BMI: 35.4. --13:47 Dangelo Francois R.N. Medications None. --14:17 Dangelo Francois R.N. Medication/allergy information source: the patient and patient's spouse. --13:53 Dangelo Francois R.N. Allergies Iodine. --13:48 Dangelo Francois R.N. IV Contrast. --13:49 Dangelo Francois R.N. History Arrived by private vehicle. Historian: patient. Accompanied by family. ( R wrist fx recheck. Ortho would not see Pt d/t insurance.). This occurred (2 weeks ago). PAST MEDICAL HX: No history of diabetes mellitus or hypertension. SURGERY HX: Tonsillectomy. SOCIAL HX: Current every day heavy tobacco smoker- less than 1 pack per day. Occasional alcohol use. History of drug use: marijuana. No infectious disease exposure. ABUSE ASSESSMENT: No report of abuse. FALL RISK ASSESSMENT: Fall risk assessment completed. No fall risk identified. NUTRITIONAL RISK ASSESSMENT: The nutritional risk assessment revealed no deficiencies. FUNCTIONAL ASSESSMENT: Functional assessment: no impairments noted. LEARNING NEEDS ASSESSMENT: The learning needs assessment revealed no barriers. SKIN INTEGRITY ASSESSMENT: Skin integrity risk assessment completed. No skin integrity risk identified. --13:53 Dangelo Francois R.N. Interventions ID band on patient. To treatment room. --13:53 Dangelo Francois R.N. PHYSICAL ASSESSMENT Ambulatory to room. GENERAL / NEURO / PSYCH: Oriented X 4. Alert. Appears in no acute distress. EXTREMITIES: No upper extremity edema. Skin is non-tender on the extremities. Right wrist: located in the radial aspect of the wrist. ( small amount of swelling noted). SKIN: Skin intact. Skin is warm and dry. --13:55 Dangelo Francois R.N. NURSING PROGRESS NOTES The plan of care for this patient has been created. Extremity elevated. Call light placed in reach. Bed placed in lowest position. Patient ready for evaluation- chart flagged and PA notified. --13:55 Dangelo Francois R.N. 14:04 08/22/2016 Hydrocodone-APAP (Hydrocodone-Acetaminophen) PO 5/325 mg Tablets 1 tab given. Allergies verified, confirmed 5 rights and sedative warning given to the patient. --14:04 Dangelo Francois R.N. Sugar tong fiberglass upper extremity splint applied to right forearm and wrist by tech. Distal pulses intact, sensation intact and motor within normal limits. Reassessment after splinting. Overall patient status is improved- he states feels better. --14:13 Dangelo Francois R.N. 14:11 08/22/2016 Hydrocodone-APAP PO Response: no adverse reaction. --14:16 Dangelo Francois R.N. DISPOSITION / DISCHARGE Condition at departure: improved and stable. The goals identified in the patient's plan of care were met. No learning barriers present. Discharge instructions provided and reviewed with the patient. Reviewed medication(s) side effects, precautions, dosing and course information. Reviewed referral to an orthopedic surgeon and a primary care physician. Summary of care provided to patient via paper (Pt instructed to go to the [facility] to get a PCP and then a referral to Ortho.). Activity restrictions (minimal use of injured extremity) reviewed. Patient and spouse verbalized understanding. Written instructions provided in Greek. The patient was discharged by the physician child development assistant. He was discharged home and accompanied by spouse. He left the Emergency Department ambulatory and via private vehicle. Spouse driving. --14:14 Dangelo Francois R.N. Departure time: 14:14 Aug 22 2016. --14:14 Dangelo Francois R.N. ( Pt left in stable condition, new splint applied, PA assessed splint prior to DC. Pt given dose of pain medication as ordered, Pt given instructions to walk over to [facility] to get set up with a PCP so he can then obtain a referral to see an Orthopedic Surgeon. Dr. Farr would not see Pt until he is referred by his PCP.). --14:16 Dangelo Francois R.N. Locked/Released at 08/22/2016 14:44 by Dangelo Francois R.N.
--- NOTE | 2016-08-22 13:59 | ED ORDER SUMMARY ---
..... Patient: ABENA GARCIA OrderSheet [facility] VisitID: [id number] [address] [place] [address] 46y, M Registration Date/Time: 08/22/2016 ORDER SHEET Weight: 108.8 kg (stated) Allergies: Iodine, IV Contrast GENERAL ORDERS: Splint (UE) (Right) (philippe jain) (13:59 08/22/2016 Tye ThomasonADon-C) (Ack 14:01 Farzana) (14:02 Kayley R.N.) MEDICATION ORDERS: Hydrocodone-APAP PO 5/325 mg (NOW) (13:58 08/22/2016 Tye Farris-Martin) (14:04 Kayley R.N.) IV FLUIDS: ORDER SHEET NOTES: [Electronically signed by Ce Cantu P.A.-C (14:29 08/22/2016)] [Electronically signed by Dangelo Francois R.N. (14:44 08/22/2016)] [Electronically locked/signed by Dangelo Francois R.N. (14:44 08/22/2016)]
--- NOTE | 2016-08-22 13:59 | ED CLINICAL REPORT ---
Clinical Report - Physicians/Mid Levels [facility] [address] [place] [address] 08/22/2016 12:56 [id number] Time Seen: 14:25 Aug 22 2016. Arrived- By private vehicle. Historian- patient. HISTORY OF PRESENT ILLNESS Chief Complaint: Injury to right wrist. 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 ( 08/09, patient was seen in the emergency department, sustained a wrist fracture, and has been having difficulty establishing orthopedics follow-up since. Patient reports he removed the splint once, as he had paresthesias to the area of his forearm, wishing to stab it with a pencil, and dry skin, which resolved, patient has placed a splint. Denies any new sudden pain. Denies any new trauma. Denies). REVIEW OF SYSTEMS All systems otherwise negative, except as recorded above. PAST HISTORY The patient's dominant hand is the right. He has had a prior injury to the same area. Problems: Fall. Additional Surgeries: Tonsillectomy. Medications: None. Allergies: Iodine. IV Contrast. SOCIAL HISTORY Current every day smoker. Occasional alcohol use. History of drug use. ADDITIONAL NOTES The nursing notes have been reviewed. PHYSICAL EXAM Appearance: Alert. No acute distress. Head: Head atraumatic. Neck: Normal inspection. CVS: Normal heart rate and rhythm. Respiratory: No respiratory distress. Breath sounds normal. Skin: Skin warm. Normal skin color. Extremities: No signs of infection present in the upper extremities. Right forearm. No tenderness or laceration. Right wrist: mild tenderness and swelling located in the radial aspect of the wrist. Limited ROM secondary to pain (diminished flexion and extension). No erythema, abrasion, ecchymosis or puncture wound. Right hand. 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 No tenderness or swelling. Neuro, Vascular and Tendons: No pulse deficit present. No tendon injury seen. PROGRESS AND PROCEDURES Splint Application: Time: 1400. Fiberglass sugar tong splint applied to right hand and wrist. Splint applied by tech. Reassessed extremity following splint application. Neurovascular intact. Course of Care: patient has a good distal radial pulse, his skin is warm and intact, the splint was removed, and visualization of the underlying skin does not show any skin breakdown. Patient has no pain out of proportion to the injury, have attempted to arrange for ORTHO, patient needs a primary care provider referral first, and thus they will follow-up with [facility] now. 08/22/2016 13:47 BP: 138/93. HR: 65. RR: 16. O2 saturation: 98%. Temp: 98.4 F. Pain level now: 08/29. Patient is stable. Symptoms better. Patient/family counseled. Disposition: Discharged. Condition: good. CLINICAL IMPRESSION Fracture of the distal right radius (Sub-acute (second visit)). INSTRUCTIONS Apply ice. Elevate affected areas above chest level. Limit use of your hand. (call ORTHO as discussed). Prescription Medications: Hydrocodone/APAP 5mg / 325mg: take 1 orally every 6 hours as needed for pain. Dispense twelve (12). No refill. (Electronically signed by Ce Cantu P.A.-C 08/22/2016 14:29)
--- NOTE | 2016-08-22 13:59 | ED ORDER SUMMARY ---
..... Patient: ABENA GARCIA OrderSheet [facility] VisitID: [id number] [address] [place] [address] 46y, M Registration Date/Time: 08/22/2016 ORDER SHEET Weight: 108.8 kg (stated) Allergies: Iodine, IV Contrast GENERAL ORDERS: Splint (UE) (Right) (philippe jain) (13:59 08/22/2016 Tye ThomasonADon-C) (Ack 14:01 Farzana) (14:02 Kayley R.N.) MEDICATION ORDERS: Hydrocodone-APAP PO 5/325 mg (NOW) (13:58 08/22/2016 Tye Farris-Martin) (14:04 Kayley R.N.) IV FLUIDS: ORDER SHEET NOTES: [Electronically signed by Ce Cantu P.A.-C (14:29 08/22/2016)] [Electronically signed by Dangelo Francois R.N. (14:44 08/22/2016)] [Electronically locked/signed by Dangelo Francois R.N. (14:44 08/22/2016)]
--- NOTE | 2016-08-22 14:44 | ED MED RECONCILIATION SUMMARY ---
Patient: ABENA GARCIA Medication Reconciliation Report [facility] VisitID: [id number] [address] [place] [address] 46y, M Registration Date/Time: 08/22/2016 Weight: 108.8 kg Height/Length: 69 in. BMI: 35.4 ALLERGIES: Iodine, IV Contrast The patient's Home Medications are listed below: NONE. The source(s) of the original Home Medication information: patient patient's spouse The following Medications were given to the patient in the Emergency Department: Hydrocodone-APAP [PO] PO 1 tab, administered: 08/22/2016 2:04:00 PM The following Medications were prescribed to the patient: Hydrocodone/APAP 5mg / 325mg: take 1 orally every 6 hours as needed for pain. Dispense twelve (12). No refill. -- Ce Cantu, PDonACarlC
--- NOTE | 2016-08-22 14:44 | ED MAR SUMMARY ---
..... Medication Administration Record [address] [place] [address] Patient: ABENA GARCIA Visit ID: [id number] 46y, M Weight: 108.8 kg Height/Length: 69 in BMI: 35.4 ALLERGIES: IV Contrast, Iodine Given 14:04 08/22/2016 Dangelo Francois R.N. Medication Administered: HYDROCODONE-APAP [PO] (HYDROCODONE-ACETAMINOPHEN), Dose: 1 tab 5/325 mg Tablets PO. Medication Ordered: Hydrocodone-APAP PO 5/325 mg (NOW).
--- NOTE | 2016-08-22 14:44 | ED DISCHARGE INSTRUCTIONS ---
Patient: ABENA GARCIA General Instructions [facility] VisitID: [id number] [place] [address] 46y, M Registration Date/Time: 08/22/2016 Fracture of the distal right radius (Sub-acute (second visit)). INSTRUCTIONS Apply ice. Elevate affected areas above chest level. Limit use of your hand. (call ORTHO as discussed). Prescription Medications: Hydrocodone/APAP 5mg / 325mg: take 1 orally every 6 hours as needed for pain. Dispense twelve (12). No refill. ADDITIONAL INFORMATION Fracture: Wrist (General) You have a fracture (break) of a bone in your wrist. This may be a small crack or chip in the bone; or a major break with the broken parts pushed out of position. Wrist fractures are treated with a splint or cast. They take about 4-6 weeks to heal. Severe injuries may require surgery. Home Care: Keep your arm elevated to reduce pain and swelling. When sitting or lying down elevate your arm above the level of your heart. You can do this by placing your arm on a pillow that rests on your chest or on a pillow at your side. This is most important during the first 48 hours after injury. Apply an ice pack (ice cubes in a plastic bag, wrapped in a towel) over the injured area for 20 minutes every 1-2 hours the first day. You can place the ice pack inside the sling and directly over the splint/cast. Continue with ice packs 3-4 times a day for the next two days, then as needed for the relief of pain and swelling. Keep the cast/splint completely dry at all times. Bathe with your cast/splint out of the water, protected with a large plastic bag, rubber-banded at the top end. If a fiberglass splint/cast gets wet, you can dry it with a hair-dryer. You may use acetaminophen (Tylenol) or ibuprofen (Motrin, Advil) to control pain, unless another pain medicine was prescribed. [NOTE: If you have chronic liver or kidney disease or ever had a stomach ulcer or GI bleeding, talk with your doctor before using these medicines.] Follow Up with your doctor in one week, or as advised by our staff, to be sure the bone is healing properly. If a splint was applied, it will be changed to a cast during your follow-up visit. [NOTE: Any X-rays taken will be reviewed by a radiologist. You will be notified if there are any new findings that may affect your care.] Get Prompt Medical Attention if any of the following occur: The plaster cast or splint becomes wet or soft The fiberglass cast or splint remains wet for more than 24 hours Increased tightness or pain under the cast or splint Fingers become swollen, cold, blue, numb or tingly Hydrocodone Bitartrate, Acetaminophen Oral tablet What is this medicine? ACETAMINOPHEN; HYDROCODONE (a set a PHYLICIA myles fen; joe droe KOE done) is a pain reliever. It is used to treat mild to moderate pain. How should I use this medicine? Take this medicine by mouth. Swallow it with a full glass of water. Follow the directions on the prescription label. If the medicine upsets your stomach, take the medicine with food or milk. Do not take more than you are told to take. Talk to your journeyman pipefitter regarding the use of this medicine in children. This medicine is not approved for use in children. What side effects may I notice from receiving this medicine? Side effects that you should report to your doctor or health care transition manager as soon as possible: allergic reactions like skin rash, itching or hives, swelling of the face, lips, or tongue breathing problems confusion feeling faint or lightheaded, falls stomach pain yellowing of the eyes or skin Side effects that usually do not require medical attention (report to your doctor or health care transition manager if they continue or are bothersome): nausea, vomiting stomach upset What may interact with this medicine? alcohol antihistamines isoniazid medicines for depression, anxiety, or psychotic disturbances medicines for sleep muscle relaxants naltrexone narcotic medicines (opiates) for pain phenobarbital ritonavir tramadol What if I miss a dose? If you miss a dose, take it as soon as you can. If it is almost time for your next dose, take only that dose. Do not take double or extra doses. Where should I keep my medicine? Keep out of the reach of children. This medicine can be abused. Keep your medicine in a safe place to protect it from theft. Do not share this medicine with anyone. Selling or giving away this medicine is dangerous and against the law. Store at room temperature between 15 and 30 degrees C (59 and 86 degrees F). Protect from light. Keep container tightly closed. Throw away any unused medicine after the expiration date. Discard unused medicine and used packaging carefully. Pets and children can be harmed if they find used or lost packages. What should I tell my health care provider before I take this medicine? They need to know if you have any of these conditions: brain tumor Crohn's disease, inflammatory bowel disease, or ulcerative colitis drink more than 3 alcohol-containing drinks per day drug abuse or addiction head injury heart or circulation problems kidney disease or problems going to the bathroom liver disease lung disease, asthma, or breathing problems an unusual or allergic reaction to acetaminophen, hydrocodone, other opioid analgesics, other medicines, foods, dyes, or preservatives or trying to get breast-feeding What should I watch for while using this medicine? Tell your doctor or health care transition manager if your pain does not go away, if it gets worse, or if you have new or a different type of pain. You may develop tolerance to the medicine. Tolerance means that you will need a higher dose of the medicine for pain relief. Tolerance is normal and is expected if you take the medicine for a long time. Do not suddenly stop taking your medicine because you may develop a severe reaction. Your body becomes used to the medicine. This does NOT mean you are addicted. Addiction is a behavior related to getting and using a drug for a non-medical reason. If you have pain, you have a medical reason to take pain medicine. Your doctor will tell you how much medicine to take. If your doctor wants you to stop the medicine, the dose will be slowly lowered over time to avoid any side effects. You may get drowsy or dizzy when you first start taking the medicine or change doses. Do not drive, use machinery, or do anything that may be dangerous until you know how the medicine affects you. Stand or sit up slowly. There are different types of narcotic medicines (opiates) for pain. If you take more than one type at the same time, you may have more side effects. Give your health care provider a list of all medicines you use. Your doctor will tell you how much medicine to take. Do not take more medicine than directed. Call emergency for help if you have problems breathing. The medicine will cause constipation. Try to have a bowel movement at least every 2 to 3 days. If you do not have a bowel movement for 3 days, call your doctor or health care transition manager. Too much acetaminophen can be very dangerous. Do not take Tylenol (acetaminophen) or medicines that contain acetaminophen with this medicine. Many non-prescription medicines contain acetaminophen. Always read the labels carefully. You have been given the following additional information: Fracture, Wrist [General] Hydrocodone Bitartrate, Acetaminophen Oral tablet Limit use of your hand. (Electronically signed by Ce Cantu P.A.-C 08/22/2016 14:29)
--- NOTE | 2016-08-22 14:44 | ED DISCHARGE INSTRUCTIONS ---
Patient: ABENA GARCIA General Instructions [facility] VisitID: [id number] [place] [address] 46y, M Registration Date/Time: 08/22/2016 Fracture of the distal right radius (Sub-acute (second visit)). INSTRUCTIONS Apply ice. Elevate affected areas above chest level. Limit use of your hand. (call ORTHO as discussed). Prescription Medications: Hydrocodone/APAP 5mg / 325mg: take 1 orally every 6 hours as needed for pain. Dispense twelve (12). No refill. ADDITIONAL INFORMATION Fracture: Wrist (General) You have a fracture (break) of a bone in your wrist. This may be a small crack or chip in the bone; or a major break with the broken parts pushed out of position. Wrist fractures are treated with a splint or cast. They take about 4-6 weeks to heal. Severe injuries may require surgery. Home Care: Keep your arm elevated to reduce pain and swelling. When sitting or lying down elevate your arm above the level of your heart. You can do this by placing your arm on a pillow that rests on your chest or on a pillow at your side. This is most important during the first 48 hours after injury. Apply an ice pack (ice cubes in a plastic bag, wrapped in a towel) over the injured area for 20 minutes every 1-2 hours the first day. You can place the ice pack inside the sling and directly over the splint/cast. Continue with ice packs 3-4 times a day for the next two days, then as needed for the relief of pain and swelling. Keep the cast/splint completely dry at all times. Bathe with your cast/splint out of the water, protected with a large plastic bag, rubber-banded at the top end. If a fiberglass splint/cast gets wet, you can dry it with a hair-dryer. You may use acetaminophen (Tylenol) or ibuprofen (Motrin, Advil) to control pain, unless another pain medicine was prescribed. [NOTE: If you have chronic liver or kidney disease or ever had a stomach ulcer or GI bleeding, talk with your doctor before using these medicines.] Follow Up with your doctor in one week, or as advised by our staff, to be sure the bone is healing properly. If a splint was applied, it will be changed to a cast during your follow-up visit. [NOTE: Any X-rays taken will be reviewed by a radiologist. You will be notified if there are any new findings that may affect your care.] Get Prompt Medical Attention if any of the following occur: The plaster cast or splint becomes wet or soft The fiberglass cast or splint remains wet for more than 24 hours Increased tightness or pain under the cast or splint Fingers become swollen, cold, blue, numb or tingly Hydrocodone Bitartrate, Acetaminophen Oral tablet What is this medicine? ACETAMINOPHEN; HYDROCODONE (a set a PHYLICIA myles fen; joe droe KOE done) is a pain reliever. It is used to treat mild to moderate pain. How should I use this medicine? Take this medicine by mouth. Swallow it with a full glass of water. Follow the directions on the prescription label. If the medicine upsets your stomach, take the medicine with food or milk. Do not take more than you are told to take. Talk to your winder helper regarding the use of this medicine in children. This medicine is not approved for use in children. What side effects may I notice from receiving this medicine? Side effects that you should report to your doctor or health health care facilities inspector as soon as possible: allergic reactions like skin rash, itching or hives, swelling of the face, lips, or tongue breathing problems confusion feeling faint or lightheaded, falls stomach pain yellowing of the eyes or skin Side effects that usually do not require medical attention (report to your doctor or health health care facilities inspector if they continue or are bothersome): nausea, vomiting stomach upset What may interact with this medicine? alcohol antihistamines isoniazid medicines for depression, anxiety, or psychotic disturbances medicines for sleep muscle relaxants naltrexone narcotic medicines (opiates) for pain phenobarbital ritonavir tramadol What if I miss a dose? If you miss a dose, take it as soon as you can. If it is almost time for your next dose, take only that dose. Do not take double or extra doses. Where should I keep my medicine? Keep out of the reach of children. This medicine can be abused. Keep your medicine in a safe place to protect it from theft. Do not share this medicine with anyone. Selling or giving away this medicine is dangerous and against the law. Store at room temperature between 15 and 30 degrees C (59 and 86 degrees F). Protect from light. Keep container tightly closed. Throw away any unused medicine after the expiration date. Discard unused medicine and used packaging carefully. Pets and children can be harmed if they find used or lost packages. What should I tell my health care provider before I take this medicine? They need to know if you have any of these conditions: brain tumor Crohn's disease, inflammatory bowel disease, or ulcerative colitis drink more than 3 alcohol-containing drinks per day drug abuse or addiction head injury heart or circulation problems kidney disease or problems going to the bathroom liver disease lung disease, asthma, or breathing problems an unusual or allergic reaction to acetaminophen, hydrocodone, other opioid analgesics, other medicines, foods, dyes, or preservatives or trying to get breast-feeding What should I watch for while using this medicine? Tell your doctor or health health care facilities inspector if your pain does not go away, if it gets worse, or if you have new or a different type of pain. You may develop tolerance to the medicine. Tolerance means that you will need a higher dose of the medicine for pain relief. Tolerance is normal and is expected if you take the medicine for a long time. Do not suddenly stop taking your medicine because you may develop a severe reaction. Your body becomes used to the medicine. This does NOT mean you are addicted. Addiction is a behavior related to getting and using a drug for a non-medical reason. If you have pain, you have a medical reason to take pain medicine. Your doctor will tell you how much medicine to take. If your doctor wants you to stop the medicine, the dose will be slowly lowered over time to avoid any side effects. You may get drowsy or dizzy when you first start taking the medicine or change doses. Do not drive, use machinery, or do anything that may be dangerous until you know how the medicine affects you. Stand or sit up slowly. There are different types of narcotic medicines (opiates) for pain. If you take more than one type at the same time, you may have more side effects. Give your health care provider a list of all medicines you use. Your doctor will tell you how much medicine to take. Do not take more medicine than directed. Call emergency for help if you have problems breathing. The medicine will cause constipation. Try to have a bowel movement at least every 2 to 3 days. If you do not have a bowel movement for 3 days, call your doctor or health health care facilities inspector. Too much acetaminophen can be very dangerous. Do not take Tylenol (acetaminophen) or medicines that contain acetaminophen with this medicine. Many non-prescription medicines contain acetaminophen. Always read the labels carefully. You have been given the following additional information: Fracture, Wrist [General] Hydrocodone Bitartrate, Acetaminophen Oral tablet Limit use of your hand. (Electronically signed by Ce Cantu P.A.-C 08/22/2016 14:29)
--- NOTE | 2016-08-22 14:44 | ED MED RECONCILIATION SUMMARY ---
Patient: ABENA GARCIA Medication Reconciliation Report [facility] VisitID: [id number] [address] [place] [address] 46y, M Registration Date/Time: 08/22/2016 Weight: 108.8 kg Height/Length: 69 in. BMI: 35.4 ALLERGIES: Iodine, IV Contrast The patient's Home Medications are listed below: NONE. The source(s) of the original Home Medication information: patient patient's spouse The following Medications were given to the patient in the Emergency Department: Hydrocodone-APAP [PO] PO 1 tab, administered: 08/22/2016 2:04:00 PM The following Medications were prescribed to the patient: Hydrocodone/APAP 5mg / 325mg: take 1 orally every 6 hours as needed for pain. Dispense twelve (12). No refill. -- Ce Cantu, PDonACarlC
--- NOTE | 2016-08-22 14:44 | ED MAR SUMMARY ---
..... Medication Administration Record [address] [place] [address] Patient: ABENA GARCIA Visit ID: [id number] 46y, M Weight: 108.8 kg Height/Length: 69 in BMI: 35.4 ALLERGIES: IV Contrast, Iodine Given 14:04 08/22/2016 Dangelo Francois R.N. Medication Administered: HYDROCODONE-APAP [PO] (HYDROCODONE-ACETAMINOPHEN), Dose: 1 tab 5/325 mg Tablets PO. Medication Ordered: Hydrocodone-APAP PO 5/325 mg (NOW).
== END 2016-08-22 14:14 | disposition home or self-care (01) ==
LOC: ED SRH 12:54
DX: S52.501D Unspecified fracture of the lower end of right radius, subsequent encounter for closed fracture with routine healing (principal); X58.XXXD Exposure to other specified factors, subsequent encounter; Y93.9 Activity, unspecified; Y92.9 Unspecified place or not applicable; Y99.9 Unspecified external cause status; F17.210 Nicotine dependence, cigarettes, uncomplicated